=== PATIENT | male | born 1930 | race Hispanic/Latino ===

== ENCOUNTER 2017-09-06 13:30 | Inpatient (IN) | payer OTHER ==
[~2017-09-06] VITALS: Ht 185.4 cm; Wt 62.9 kg
[~2017-09-06 13:30] MED LIST: BISA5TAB12 PO; CARV6.25 PO; CEFTR1IV IV; DILT240C96 PO; LEVO500T2 PO; PANT40TA25 PO; RIVA20TA PO; SIMV20TA6 PO
[2017-09-06] MEDS ORDERED: CEFEPIME HCL 1 GM VIAL ONE (13:47)
[2017-09-06] MEDS ORDERED: METHYLPREDNISOLONE SOD SUCC 40MG/ML 1ML ONE (13:48)
[2017-09-06] MEDS ORDERED: OSELTAMIVIR PHOSPHATE 75 MG CAP ONE (13:49)
[2017-09-06 14:26] LABS: BASOPHILS % (AUTO) 0.3 % (0.0-5.0); HEMATOCRIT 38.8 % (42-54); LYMPHOCYTES % (AUTO) 10.1 % (21.0-51.0); MEAN CORPUSCULAR HGB CONC 33.4 g/dL (32.0-36.0); MEAN CORPUSCULAR VOLUME 86.8 fL (79-99); MONOCYTES % (AUTO) 13.7 % (3.0-13.0); NEUTROPHILS % (AUTO) 75.9 % (40.0-77.0); PLATELET COUNT (AUTO) 242 K/uL (130-400); RED BLOOD CELL COUNT(AUTO) 4.47 MIL/uL (4.50-6.20); RED CELL DISTRIBUTION WIDTH 18.9 % (11.0-15.5); WHITE BLOOD COUNT (AUTO) 9.1 K/uL (4.8-10.8)
[2017-09-06 14:43] LABS: POTASSIUM 3.8 mmol/L (3.5-5.1)
[2017-09-06 14:49] LABS: ALBUMIN 3.2 g/dL (3.5-5.0); BILIRUBIN,DIRECT 0.6 mg/dL (0.0-0.3); BILIRUBIN,TOTAL 1.7 mg/dL (0.2-1.0); TOTAL PROTEIN, SERUM 7.2 g/dL (6.0-8.3)
[2017-09-06] MEDS ORDERED: IPRATROPIUM/ALBUTEROL SULFATE 3 ML SOLUTION IH ONE ×3 (15:19→23:23)
[2017-09-06] MEDS ORDERED: LEVOFLOXACIN 500 MG/D5W 100 ML 100 ML ONE (15:50)
[2017-09-06 20:41] VITALS: BP 132/73
[2017-09-06 23:00] VITALS: BP 126/83
[2017-09-07] MEDS ORDERED: ACETYLCYSTEINE 20% 200MG/ML 4ML VIAL ONE (00:13)
[2017-09-07] MEDS ORDERED: GUAIFENESIN-DM 200/20 MG 10 ML PO PRN (00:15)
[2017-09-07] MEDS ORDERED: DiphenhydrAMINE HCL 50 MG/ML VIAL IV PRN (00:15)
[2017-09-07] MEDS ORDERED: IPRATROPIUM/ALBUTEROL SULFATE 3 ML SOLUTION IH ONE (00:19)
[2017-09-07] MEDS: METHYLPREDNISOLONE SOD SUCC 125MG/2ML VIAL IVP SCH ×2 (01:55→13:35)
[2017-09-07] MEDS: CEFEPIME HCL 1 GM VIAL IVP SCH ×2 (01:55→13:35)
[2017-09-07] MEDS ORDERED: CEFEPIME HCL 1 GM VIAL IVP SCH (02:00)
[2017-09-07] MEDS ORDERED: CEFEPIME 1GM+NS 50ML 50 ML IV SCH (02:00)
[2017-09-07 03:00] VITALS: BP 134/75
[2017-09-07 05:13] LABS: HEMATOCRIT 36.4 % (42-54); MEAN CORPUSCULAR HEMOGLOBIN 28.3 pg (27.0-33.0); MEAN CORPUSCULAR HGB CONC 32.9 g/dL (32.0-36.0); MEAN CORPUSCULAR VOLUME 86.2 fL (79-99); PLATELET COUNT (AUTO) 221 K/uL (130-400); RED BLOOD CELL COUNT(AUTO) 4.22 MIL/uL (4.50-6.20); WHITE BLOOD COUNT (AUTO) 6.6 K/uL (4.8-10.8)
[2017-09-07 05:29] LABS: ALBUMIN 2.8 g/dL (3.5-5.0); BILIRUBIN,DIRECT 0.3 mg/dL (0.0-0.3); BILIRUBIN,TOTAL 0.7 mg/dL (0.2-1.0); CREATININE 0.9 mg/dL (0.5-1.5); POTASSIUM 3.9 mmol/L (3.5-5.1); TOTAL PROTEIN, SERUM 6.7 g/dL (6.0-8.3)
[2017-09-07] MEDS: IPRATROPIUM/ALBUTEROL SULFATE 3 ML SOLUTION IH SCH ×4 (07:08→23:40)
[2017-09-07] MEDS: ACETYLCYSTEINE 20% 200MG/ML 4ML VIAL IH SCH ×4 (07:09→23:41)
[2017-09-07 07:59] VITALS: BP 133/86
[2017-09-07 11:16] VITALS: BP 128/74
[2017-09-07] MEDS: OSELTAMIVIR PHOSPHATE 75 MG CAP PO SCH ×2 (13:35→20:40)
[2017-09-07] MEDS: FAMOTIDINE 20MG TAB 20 MG TAB PO SCH ×2 (13:35→20:39)
[2017-09-07 15:53] VITALS: BP 138/75
[2017-09-07 19:00] VITALS: BP 144/75
[2017-09-07] MEDS: ZOLPIDEM TARTRATE 5 MG TAB PO PRN (20:41)
[2017-09-07 23:00] VITALS: BP 134/67
[2017-09-08] MEDS: METHYLPREDNISOLONE SOD SUCC 125MG/2ML VIAL IVP SCH ×2 (01:51→15:17)
[2017-09-08] MEDS: CEFEPIME HCL 1 GM VIAL IVP SCH ×2 (01:51→15:17)
[2017-09-08 03:00] VITALS: BP 158/86
[2017-09-08] MEDS: IPRATROPIUM/ALBUTEROL SULFATE 3 ML SOLUTION IH SCH ×3 (06:28→19:20)
[2017-09-08] MEDS: ACETYLCYSTEINE 20% 200MG/ML 4ML VIAL IH SCH ×3 (06:29→19:20)
[2017-09-08 07:00] VITALS: BP 165/82
[2017-09-08] MEDS: FAMOTIDINE 20MG TAB 20 MG TAB PO SCH ×2 (09:43→20:44)
[2017-09-08] MEDS: OSELTAMIVIR PHOSPHATE 75 MG CAP PO SCH ×2 (09:43→20:44)
[2017-09-08 11:00] VITALS: BP 138/71
[2017-09-08] MEDS ORDERED: LEVOFLOXACIN 500 MG/D5W 100 ML 100 ML IV SCH (15:00)
[2017-09-08 16:00] VITALS: BP 146/81
[2017-09-08 19:40] VITALS: BP 147/87
[2017-09-09] VITALS (7 sets, daily range): BP systolic 125–155; BP diastolic 70–81
[2017-09-09] MEDS: IPRATROPIUM/ALBUTEROL SULFATE 3 ML SOLUTION IH SCH ×5 (00:09→23:04)
[2017-09-09] MEDS: ACETYLCYSTEINE 20% 200MG/ML 4ML VIAL IH SCH ×5 (00:12→23:04)
[2017-09-09] MEDS: METHYLPREDNISOLONE SOD SUCC 125MG/2ML VIAL IVP SCH (00:36)
[2017-09-09] MEDS: CEFEPIME HCL 1 GM VIAL IVP SCH (00:36)
[2017-09-09] MEDS: ZOLPIDEM TARTRATE 5 MG TAB PO PRN (00:37)
[2017-09-09 05:00] LABS: HEMATOCRIT 35.2 % (42-54); MEAN CORPUSCULAR HEMOGLOBIN 28.8 pg (27.0-33.0); MEAN CORPUSCULAR HGB CONC 33.4 g/dL (32.0-36.0); MEAN CORPUSCULAR VOLUME 86.3 fL (79-99); PLATELET COUNT (AUTO) 261 K/uL (130-400); RED BLOOD CELL COUNT(AUTO) 4.09 MIL/uL (4.50-6.20); RED CELL DISTRIBUTION WIDTH 18.9 % (11.0-15.5); WHITE BLOOD COUNT (AUTO) 10.6 K/uL (4.8-10.8)
[2017-09-09 05:23] LABS: CREATININE 0.9 mg/dL (0.5-1.5); POTASSIUM 4.5 mmol/L (3.5-5.1)
[2017-09-09] MEDS: OSELTAMIVIR PHOSPHATE 75 MG CAP PO SCH (21:15)
[2017-09-09] MEDS: FAMOTIDINE 20MG TAB 20 MG TAB PO SCH (21:15)
[2017-09-10] MEDS: ZOLPIDEM TARTRATE 5 MG TAB PO PRN (00:27)
[2017-09-10] MEDS: METHYLPREDNISOLONE SOD SUCC 125MG/2ML VIAL IVP SCH (01:42)
[2017-09-10] MEDS: CEFEPIME HCL 1 GM VIAL IVP SCH (01:43)
[2017-09-10 03:35] VITALS: BP 156/92
[2017-09-10 05:49] LABS: HEMATOCRIT 36.3 % (42-54); MEAN CORPUSCULAR HEMOGLOBIN 28.8 pg (27.0-33.0); MEAN CORPUSCULAR HGB CONC 33.5 g/dL (32.0-36.0); MEAN CORPUSCULAR VOLUME 86.1 fL (79-99); NUCLEATED RED BLOOD CELLS 0.1 % (0.0-0.19); PLATELET COUNT (AUTO) 249 K/uL (130-400); RED BLOOD CELL COUNT(AUTO) 4.22 MIL/uL (4.50-6.20); RED CELL DISTRIBUTION WIDTH 18.3 % (11.0-15.5); WHITE BLOOD COUNT (AUTO) 8.2 K/uL (4.8-10.8)
[2017-09-10 05:58] LABS: CREATININE 1.1 mg/dL (0.5-1.5); POTASSIUM 4.4 mmol/L (3.5-5.1)
[2017-09-10 06:01] LABS: LYMPHOCYTES % (MANUAL) 9 % (22-44); MAN.DIFF COMMENT-IMPRESSION MANUAL DIFFERENTIAL; MONOCYTES % (MANUAL) 3 % (2-9); PLATELET MORPHOLOGY COMMENT ADEQUATE; SEGMENTED NEUTROPHILS % 88 % (40-70)
[2017-09-10 07:00] VITALS: BP 160/87
[2017-09-10] MEDS: IPRATROPIUM/ALBUTEROL SULFATE 3 ML SOLUTION IH SCH (07:25)
[2017-09-10] MEDS: ACETYLCYSTEINE 20% 200MG/ML 4ML VIAL IH SCH (07:27)
[2017-09-10] MEDS: FAMOTIDINE 20MG TAB 20 MG TAB PO SCH (09:40)
[2017-09-10] MEDS: OSELTAMIVIR PHOSPHATE 75 MG CAP PO SCH (09:40)
== END 2017-09-10 11:45 | disposition home or self-care (01) | DRG 189 ==
LOC: EDH 13:30 → EDHIP 13:49 → OBSVTOIN 13:49 → 3DH 20:25
PROVIDERS: ADMIT Internal Medicine; ATTEND Internal Medicine
DX: J96.91 Respiratory failure, unspecified with hypoxia (principal); I48.91 Unspecified atrial fibrillation; J44.1 Chronic obstructive pulmonary disease with (acute) exacerbation; F03.90 Unspecified dementia, unspecified severity, without behavioral disturbance, psychotic disturbance, mood disturbance, and anxiety; W19.XXXA Unspecified fall, initial encounter; M19.90 Unspecified osteoarthritis, unspecified site; N40.0 Benign prostatic hyperplasia without lower urinary tract symptoms; Y93.89 Activity, other specified; Y92.89 Other specified places as the place of occurrence of the external cause; Y99.8 Other external cause status; Z85.038 Personal history of other malignant neoplasm of large intestine
CPT/HCPCS: 36415; 70450; 71045; 80048; 80076; 85025; 85027; 94640; 94664; A4218; J0692; J1956; J2920; J2930; J7608

== ENCOUNTER 2017-09-13 10:09 | Emergency (ER) | payer OTHER ==
[~2017-09-13 10:09] MED LIST changes: -CEFTR1IV IV; -LEVO500T2 PO
[2017-09-13 11:24] LABS: BASOPHILS % (AUTO) 0.6 % (0.0-5.0); EOSINOPHILS % (AUTO) 1.7 % (0.0-8.0); HEMATOCRIT 39.3 % (42-54); LYMPHOCYTES % (AUTO) 19.4 % (21.0-51.0); MEAN CORPUSCULAR HEMOGLOBIN 28.6 pg (27.0-33.0); MEAN CORPUSCULAR HGB CONC 33.2 g/dL (32.0-36.0); MEAN CORPUSCULAR VOLUME 86.3 fL (79-99); MONOCYTES % (AUTO) 16.3 % (3.0-13.0); PLATELET COUNT (AUTO) 232 K/uL (130-400); RED BLOOD CELL COUNT(AUTO) 4.55 MIL/uL (4.50-6.20); RED CELL DISTRIBUTION WIDTH 18.6 % (11.0-15.5); WHITE BLOOD COUNT (AUTO) 10.1 K/uL (4.8-10.8)
[2017-09-13 11:32] LABS: CREATININE 0.8 mg/dL (0.5-1.5); POTASSIUM 4.7 mmol/L (3.5-5.1)
[2017-09-13 11:42] LABS: INR 1.07 (0.85-1.15); PARTIAL THROMBOPLASTIN TIME 25.2 SEC (26.3-35.5); PROTHROMBIN TIME 11.2 SEC (9.6-11.6)
[2017-09-13 11:46] LABS: ALBUMIN 2.9 g/dL (3.5-5.0); BILIRUBIN,TOTAL 0.4 mg/dL (0.2-1.0); CREATINE KINASE MB 0.9 ng/mL (0.5-3.6); TOTAL PROTEIN, SERUM 6.2 g/dL (6.0-8.3)
[2017-09-13] MEDS ORDERED: SODIUM CHLORIDE 0.9% 1000ML 1,000 ML IV ONE (11:59)
[2017-09-13 12:08] LABS: APPEARANCE,URINE Cloudy (CLEAR); BILIRUBIN,URINE Negative (NEGATIVE); COLOR,URINE Yellow (YELLOW); GLUCOSE, URINE (UA) Negative (NEGATIVE); KETONES,URINE Negative (NEGATIVE); LEUKOCYTE ESTERASE ,URINE Large (NEGATIVE); NITRATE,URINE Negative (NEGATIVE); OCCULT BLOOD,URINE Negative (NEGATIVE); PH,URINE 7.5 (5.0-8.0); PROTEIN,URINE Negative (NEGATIVE)
[2017-09-13 12:27] LABS: BACTERIA,URINE Many /HPF (None Seen); RBC,URINE 0-1 /HPF (0-1)
[2017-09-13 12:28] LABS: SQUAMOUS EPITHELIAL CELL,UR Rare /LPF (0-2)
== END 2017-09-13 14:48 | disposition home or self-care (01) ==
LOC: EDH 10:09
DX: I48.91 Unspecified atrial fibrillation (principal); I48.92 Unspecified atrial flutter; R55 Syncope and collapse; E86.0 Dehydration; J44.9 Chronic obstructive pulmonary disease, unspecified; I10 Essential (primary) hypertension; M19.90 Unspecified osteoarthritis, unspecified site; Z87.891 Personal history of nicotine dependence; W01.0XXA Fall on same level from slipping, tripping and stumbling without subsequent striking against object, initial encounter; Y93.89 Activity, other specified; Y92.89 Other specified places as the place of occurrence of the external cause; Y99.8 Other external cause status
CPT/HCPCS: 36415; 70450; 72125; 80053; 81001; 82553; 84484; 85025; 85610; 85730; 93005; 96360; 96361; 99285; J7030